=== PATIENT | female | born 1950 | race Hispanic/Latino ===

== ENCOUNTER 2020-05-02 12:21 | Emergency (ER) | payer OTHER, SELFPAY ==
[2020-05-02] MEDS ORDERED: ASPIRIN 325 MG TABLET ONE (12:37)
[2020-05-02] MEDS ORDERED: METHYLPREDNISOLONE SOD SUCC 125MG/2ML VIAL ONE (12:46)
[2020-05-02] MEDS ORDERED: ALBUTEROL INHALER 90MCG/INH IH ONE (12:46)
[2020-05-02 13:28] LABS: APPEARANCE,URINE Clear (CLEAR); BILIRUBIN,URINE Negative (NEGATIVE); COLOR,URINE Yellow (YELLOW); GLUCOSE, URINE (UA) Negative (NEGATIVE); KETONES,URINE Negative (NEGATIVE); LEUKOCYTE ESTERASE ,URINE Negative (NEGATIVE); NITRATE,URINE Negative (NEGATIVE); OCCULT BLOOD,URINE Negative (NEGATIVE); PH,URINE 6.5 (5.0-8.0); PROTEIN,URINE Negative (NEGATIVE)
[2020-05-02 13:44] LABS: RAPID GROUP A STREP NEGATIVE (NEGATIVE)
[2020-05-02 13:46] LABS: BASOPHILS % (AUTO) 0.5 % (0.0-5.0); EOSINOPHILS % (AUTO) 1.5 % (0.0-8.0); HEMATOCRIT 42.2 % (36-48); LYMPHOCYTES % (AUTO) 41.4 % (21.0-51.0); MEAN CORPUSCULAR HEMOGLOBIN 30.8 pg (27.0-33.0); MEAN CORPUSCULAR HGB CONC 33.9 g/dL (32.0-36.0); MEAN CORPUSCULAR VOLUME 90.9 fL (79-99); MONOCYTES % (AUTO) 7.4 % (3.0-13.0); NEUTROPHILS % (AUTO) 48.9 % (40.0-77.0); PLATELET COUNT (AUTO) 188 K/uL (130-400); RED BLOOD CELL COUNT(AUTO) 4.64 MIL/uL (4.00-5.50); RED CELL DISTRIBUTION WIDTH 12.5 % (11.0-15.5); WHITE BLOOD COUNT (AUTO) 6.5 K/uL (4.8-10.8)
[2020-05-02 14:04] LABS: CREATININE 0.7 mg/dL (0.5-1.5); POTASSIUM 3.8 mmol/L (3.5-5.1)
[2020-05-02 14:06] LABS: INR 0.99 (0.85-1.15); PARTIAL THROMBOPLASTIN TIME 29.8 SEC (26.3-35.5); PROTHROMBIN TIME 10.7 SEC (9.6-11.6)
[2020-05-02 14:08] LABS: ALBUMIN 4.2 g/dL (3.5-5.0); BILIRUBIN,TOTAL 0.6 mg/dL (0.2-1.0); TOTAL PROTEIN, SERUM 8.2 g/dL (6.0-8.3)
== END 2020-05-02 14:44 | disposition home or self-care (01) ==
LOC: EDH 12:21
DX: J45.31 Mild persistent asthma with (acute) exacerbation (principal); J20.9 Acute bronchitis, unspecified; Z20.828 Contact with and (suspected) exposure to other viral communicable diseases; E11.9 Type 2 diabetes mellitus without complications; Z88.8 Allergy status to other drugs, medicaments and biological substances
CPT/HCPCS: 36415; 71045; 80053; 81003; 82550; 83880; 84484; 85025; 85610; 85730; 87426; 87804 ×2; 87880; 93005; 96374; 99285; J2930; U0003